=== PATIENT | male | born 1950 | race Caucasian/White ===

== ENCOUNTER 2019-07-12 13:12 | Inpatient (IN) | payer OTHER ==
[~2019-07-12] VITALS: Ht 185.4 cm; Wt 122.9 kg
[2019-07-12 13:24] VITALS: BP_SYST 170
[2019-07-12 14:11] LABS: BASOPHILS # (AUTO) 0.1 K/uL (0.0-0.2); BASOPHILS % (AUTO) 0.6 % (0.0-2.0); EOSINOPHILS # (AUTO) 0.7 K/uL (0.0-0.4); EOSINOPHILS % (AUTO) 5.8 % (0.0-4.0); HEMATOCRIT 23.5 % (36-54); HEMOGLOBIN 7.7 g/dL (14.0-18.0); LYMPHOCYTES # (AUTO) 1.9 K/uL (1.0-5.5); LYMPHOCYTES % (AUTO) 16.5 % (20.5-51.5); MEAN CORPUSCULAR HEMOGLOBIN 29 pg (27-31); MEAN CORPUSCULAR HGB CONC 33 % (32-36); MEAN CORPUSCULAR VOLUME 89 fL (79.0-98.0); MONOCYTES # (AUTO) 0.8 K/uL (0.0-1.0); MONOCYTES % (AUTO) 6.5 % (1.7-9.3); NEUTROPHILS # (AUTO) 8.2 K/uL (1.8-7.7); NEUTROPHILS % (AUTO) 70.6 % (40.0-70.0); PLATELET COUNT (AUTO) 208 K/uL (130-430); RED BLOOD CELL COUNT(AUTO) 2.63 MIL/uL (4.2-6.2); WHITE BLOOD COUNT (AUTO) 11.6 K/uL (4.8-10.8)
[2019-07-12 14:24] LABS: CALCIUM 9.5 mg/dL (8.4-11.0); CREATININE 1.7 mg/dL (0.55-1.30); POTASSIUM 4.9 mmol/L (3.5-5.1)
[2019-07-12 14:30] LABS: ALBUMIN 2.7 g/dL (3.4-4.8); TOTAL BILIRUBIN 0.2 mg/dL (0.0-1.0)
[2019-07-12] MEDS ORDERED: LIP40 PO (15:26)
[2019-07-12] MEDS ORDERED: SITA1TAB6 PO (15:26)
[2019-07-12] MEDS ORDERED: ZINC220T4 PO (15:26)
[2019-07-12] MEDS ORDERED: ENOX300V SQ (15:26)
[2019-07-12] MEDS ORDERED: MODA100T53 PO (15:26)
[2019-07-12] MEDS ORDERED: [UNRECOGNIZED DRUG - OTHER] GT (15:26)
[2019-07-12] MEDS ORDERED: DOCU-144 PO (15:26)
[2019-07-12] MEDS ORDERED: BISA-79 PO (15:26)
[2019-07-12] MEDS ORDERED: CLOP75TA32 PO (15:26)
[2019-07-12] MEDS ORDERED: TYLL650 PO (15:26)
[2019-07-12] MEDS ORDERED: TAMS0.4C96 PO (15:26)
[2019-07-12] MEDS ORDERED: ASPI-1153 PO (15:26)
[2019-07-12] MEDS ORDERED: LOSA50TA3 PO (15:26)
[2019-07-12] MEDS ORDERED: FLEETMO RC (15:26)
[2019-07-12] MEDS ORDERED: ASCO500W7 PO (15:26)
[2019-07-12] MEDS ORDERED: HYT1 GT (15:26)
[2019-07-12] MEDS ORDERED: MOM PO (15:26)
[2019-07-12] MEDS ORDERED: fentaNYL CITRATE/PF 100 MCG/2 ML AMP IVP ONE (17:15)
[2019-07-12 17:45] VITALS: BP_SYST 143
[2019-07-12 18:10] VITALS: BP_SYST 169
[2019-07-12] MEDS ORDERED: ACETAMINOPHEN 650 MG/20.3 ML UDC PO PRN (18:30)
[2019-07-12] MEDS ORDERED: metFORMIN HCL 500 MG TABLET GT ONE (18:45)
[2019-07-12] MEDS ORDERED: LevALBUTEROL HCL 1.25 MG/0.5 ML *CONC.* VIAL.NEB (XOPENEX CONC.) INH PRN (18:45)
[2019-07-12] MEDS ORDERED: DEXTROSE 50%-WATER 50 ML DISP.SYRIN IVP PRN (19:15)
[2019-07-12] MEDS ORDERED: D5W 1,000 ML IV PRN (19:15)
[2019-07-12] MEDS ORDERED: GLUCOSE 15 GM GEL (in 37.5 GM TUBE) PO PRN (19:15)
[2019-07-12 19:43] VITALS: BP_SYST 143
[2019-07-12] MEDS: LevALBUTEROL HCL 1.25 MG/0.5 ML *CONC.* VIAL.NEB (XOPENEX CONC.) INH SCH (19:51)
[2019-07-12 19:55] VITALS: BP_SYST 160
[2019-07-12] MEDS: DOCUSATE SODIUM 100 MG CAPSULE PO SCH (21:00)
[2019-07-12] MEDS ORDERED: KCL 20 mEq in D5/0.45NS 1000mL 1,000 ML IV ONE (21:40)
[2019-07-12] MEDS: TERAZOSIN HCL 5 MG CAPSULE (HYTRIN) GT SCH (22:01)
[2019-07-12] MEDS: LORazepam 2 MG/ML VIAL IVP PRN (22:59)
[2019-07-13] MEDS: LevALBUTEROL HCL 1.25 MG/0.5 ML *CONC.* VIAL.NEB (XOPENEX CONC.) INH SCH ×4 (01:11→19:48)
[2019-07-13 01:48] VITALS: BP_SYST 141
[2019-07-13] MEDS: KCL 20 mEq in D5/0.45NS 1000mL 1,000 ML IV SCH ×3 (06:12→20:15)
[2019-07-13 08:00] VITALS: BP_SYST 128
[2019-07-13] MEDS ORDERED: metFORMIN HCL 500 MG TABLET GT SCH (08:00)
[2019-07-13] MEDS ORDERED: BISACODYL 5 MG TABLET.DR (DULCOLAX) PO PRN (09:00)
[2019-07-13] MEDS ORDERED: MINERAL OIL 133 ML ENEMA RC PRN (09:00)
[2019-07-13] MEDS ORDERED: MILK OF MAGNESIA 30 ML UDC PO PRN (09:00)
[2019-07-13] MEDS: TAMSULOSIN HCL 0.4 MG CAP PO SCH (09:15)
[2019-07-13] MEDS: ATORVASTATIN 20 MG TABLET PO SCH (09:16)
[2019-07-13] MEDS: LOSARTAN POTASSIUM 50 MG TABLET (COZAAR) PO SCH (09:16)
[2019-07-13] MEDS: CLOPIDOGREL BISULFATE 75 MG TABLET PO SCH (09:16)
[2019-07-13] MEDS: DOCUSATE SODIUM 100 MG CAPSULE PO SCH ×2 (09:17→21:00)
[2019-07-13] MEDS: MODAFINIL 100 MG TABLET (PROVIGIL) PO SCH (09:17)
[2019-07-13] MEDS: ASPIRIN 81 MG TABLET(ECOTRIN) PO SCH (09:17)
[2019-07-13 09:21] LABS: BASOPHILS # (AUTO) 0.1 K/uL (0.0-0.2); BASOPHILS % (AUTO) 0.6 % (0.0-2.0); EOSINOPHILS # (AUTO) 0.6 K/uL (0.0-0.4); EOSINOPHILS % (AUTO) 6.3 % (0.0-4.0); HEMATOCRIT 26.9 % (36-54); LYMPHOCYTES # (AUTO) 1.8 K/uL (1.0-5.5); LYMPHOCYTES % (AUTO) 18.2 % (20.5-51.5); MEAN CORPUSCULAR HEMOGLOBIN 30 pg (27-31); MEAN CORPUSCULAR HGB CONC 34 % (32-36); MEAN CORPUSCULAR VOLUME 91 fL (79.0-98.0); MONOCYTES # (AUTO) 0.8 K/uL (0.0-1.0); MONOCYTES % (AUTO) 8.2 % (1.7-9.3); NEUTROPHILS # (AUTO) 6.7 K/uL (1.8-7.7); NEUTROPHILS % (AUTO) 66.7 % (40.0-70.0); PLATELET COUNT (AUTO) 190 K/uL (130-430); RED BLOOD CELL COUNT(AUTO) 2.96 MIL/uL (4.2-6.2); RED CELL DISTRIBUTION WIDTH 16.5 % (9.0-15.0)
[2019-07-13 09:35] LABS: CALCIUM 8.8 mg/dL (8.4-11.0); CREATININE 1.91 mg/dL (0.55-1.30); POTASSIUM 4.6 mmol/L (3.5-5.1)
[2019-07-13 09:56] LABS: TOTAL IRON BIND. CAPACITY 200 ug/dL (250-450)
[2019-07-13 11:15] VITALS: BP_SYST 157
[2019-07-13] MEDS: traMADol HCL HCL 50 MG TABLET (ULTRAM) GT PRN ×2 (12:22→18:47)
[2019-07-13 15:19] VITALS: BP_SYST 154
[2019-07-13] MEDS: LORazepam 2 MG/ML VIAL IVP PRN (15:31)
[2019-07-13 20:00] VITALS: BP_SYST 169
[2019-07-13] MEDS ORDERED: BISACODYL 5 MG TABLET.DR (DULCOLAX) GT PRN (20:15)
[2019-07-13] MEDS: TERAZOSIN HCL 5 MG CAPSULE (HYTRIN) GT SCH (20:16)
[2019-07-14] MEDS: LevALBUTEROL HCL 1.25 MG/0.5 ML *CONC.* VIAL.NEB (XOPENEX CONC.) INH SCH ×4 (01:23→19:57)
[2019-07-14 01:44] VITALS: BP_SYST 122
[2019-07-14 06:45] LABS: BASOPHILS # (AUTO) 0.1 K/uL (0.0-0.2); BASOPHILS % (AUTO) 0.7 % (0.0-2.0); EOSINOPHILS # (AUTO) 0.6 K/uL (0.0-0.4); EOSINOPHILS % (AUTO) 6.3 % (0.0-4.0); HEMOGLOBIN 8.1 g/dL (14.0-18.0); LYMPHOCYTES # (AUTO) 1.8 K/uL (1.0-5.5); LYMPHOCYTES % (AUTO) 18.5 % (20.5-51.5); MEAN CORPUSCULAR HEMOGLOBIN 31 pg (27-31); MEAN CORPUSCULAR HGB CONC 34 % (32-36); MEAN CORPUSCULAR VOLUME 91 fL (79.0-98.0); MONOCYTES # (AUTO) 0.8 K/uL (0.0-1.0); MONOCYTES % (AUTO) 8.6 % (1.7-9.3); NEUTROPHILS # (AUTO) 6.4 K/uL (1.8-7.7); NEUTROPHILS % (AUTO) 65.9 % (40.0-70.0); PLATELET COUNT (AUTO) 165 K/uL (130-430); RED BLOOD CELL COUNT(AUTO) 2.64 MIL/uL (4.2-6.2); RED CELL DISTRIBUTION WIDTH 16.8 % (9.0-15.0); WHITE BLOOD COUNT (AUTO) 9.7 K/uL (4.8-10.8)
[2019-07-14 07:06] LABS: ALBUMIN 2.2 g/dL (3.4-4.8); CALCIUM 8.2 mg/dL (8.4-11.0); CREATININE 1.89 mg/dL (0.55-1.30); POTASSIUM 4.9 mmol/L (3.5-5.1); TOTAL BILIRUBIN 0.3 mg/dL (0.0-1.0)
[2019-07-14 08:00] VITALS: BP_SYST 139
[2019-07-14 08:08] LABS: FOLATE (FOLIC ACID) 8.8 ng/mL (>3.0)
[2019-07-14] MEDS: MODAFINIL 100 MG TABLET (PROVIGIL) PO SCH (08:10)
[2019-07-14] MEDS: DOCUSATE SODIUM 100 MG CAPSULE PO SCH ×2 (08:10→20:45)
[2019-07-14] MEDS: ASPIRIN 81 MG TABLET(ECOTRIN) PO SCH (08:11)
[2019-07-14] MEDS: LOSARTAN POTASSIUM 50 MG TABLET (COZAAR) PO SCH (08:11)
[2019-07-14] MEDS: TAMSULOSIN HCL 0.4 MG CAP PO SCH (08:12)
[2019-07-14] MEDS: CLOPIDOGREL BISULFATE 75 MG TABLET PO SCH (08:12)
[2019-07-14] MEDS: ATORVASTATIN 20 MG TABLET PO SCH (08:12)
[2019-07-14] MEDS: KCL 20 mEq in D5/0.45NS 1000mL 1,000 ML IV SCH (08:14)
[2019-07-14] MEDS: LORazepam 2 MG/ML VIAL IVP PRN (08:22)
[2019-07-14 11:22] VITALS: BP_SYST 164
[2019-07-14] MEDS ORDERED: FLU VACC TS2019(65UP)/MF59C/PF 45 MCG/0.5 ML SYRINGE I.M. PRN (13:00)
[2019-07-14 15:46] VITALS: BP_SYST 132
[2019-07-14] MEDS ORDERED: 0.45% NACL 1,000 ML IV SCH (17:00)
[2019-07-14 19:55] VITALS: BP_SYST 133
[2019-07-14] MEDS ORDERED: D5/0.45 NS 1,000 ML IV SCH (20:15)
[2019-07-14] MEDS: TERAZOSIN HCL 5 MG CAPSULE (HYTRIN) GT SCH (20:46)
[2019-07-14] MEDS: 0.45% NACL 1,000 ML IV SCH (21:00)
[2019-07-14] MEDS: INSULIN REGULAR, HUMAN 100 UNITS/ML, 10 ML VIAL (humuLIN R) SUBCUT PRN (23:50)
[2019-07-15 00:28] VITALS: BP_SYST 142
[2019-07-15] MEDS: LevALBUTEROL HCL 1.25 MG/0.5 ML *CONC.* VIAL.NEB (XOPENEX CONC.) INH SCH ×4 (01:52→19:46)
[2019-07-15] MEDS: 0.45% NACL 1,000 ML IV SCH ×2 (05:24→15:45)
[2019-07-15 07:14] LABS: BASOPHILS # (AUTO) 0.1 K/uL (0.0-0.2); BASOPHILS % (AUTO) 0.6 % (0.0-2.0); EOSINOPHILS # (AUTO) 0.6 K/uL (0.0-0.4); EOSINOPHILS % (AUTO) 6.2 % (0.0-4.0); HEMATOCRIT 24.6 % (36-54); HEMOGLOBIN 8.2 g/dL (14.0-18.0); LYMPHOCYTES # (AUTO) 1.7 K/uL (1.0-5.5); LYMPHOCYTES % (AUTO) 16.4 % (20.5-51.5); MEAN CORPUSCULAR HEMOGLOBIN 31 pg (27-31); MEAN CORPUSCULAR HGB CONC 33 % (32-36); MEAN CORPUSCULAR VOLUME 92 fL (79.0-98.0); MONOCYTES # (AUTO) 0.7 K/uL (0.0-1.0); MONOCYTES % (AUTO) 6.5 % (1.7-9.3); NEUTROPHILS # (AUTO) 7.2 K/uL (1.8-7.7); NEUTROPHILS % (AUTO) 70.3 % (40.0-70.0); PLATELET COUNT (AUTO) 165 K/uL (130-430); RED BLOOD CELL COUNT(AUTO) 2.68 MIL/uL (4.2-6.2); RED CELL DISTRIBUTION WIDTH 17.3 % (9.0-15.0); WHITE BLOOD COUNT (AUTO) 10.3 K/uL (4.8-10.8)
[2019-07-15 07:54] LABS: ALBUMIN 2.3 g/dL (3.4-4.8); CALCIUM 8.4 mg/dL (8.4-11.0); CREATININE 1.81 mg/dL (0.55-1.30); POTASSIUM 4.6 mmol/L (3.5-5.1); TOTAL BILIRUBIN 0.3 mg/dL (0.0-1.0)
[2019-07-15 08:00] VITALS: BP_SYST 130
[2019-07-15 08:15] VITALS: BP_SYST 142
[2019-07-15 08:16] LABS: TOTAL IRON BIND. CAPACITY 169 ug/dL (250-450)
[2019-07-15] MEDS: LORazepam 2 MG/ML VIAL IVP PRN ×3 (08:45→23:54)
[2019-07-15] MEDS: MODAFINIL 100 MG TABLET (PROVIGIL) PO SCH (08:48)
[2019-07-15] MEDS: ATORVASTATIN 20 MG TABLET PO SCH (08:48)
[2019-07-15] MEDS: CLOPIDOGREL BISULFATE 75 MG TABLET PO SCH (08:48)
[2019-07-15] MEDS: TAMSULOSIN HCL 0.4 MG CAP PO SCH (08:49)
[2019-07-15] MEDS: ASPIRIN 81 MG TABLET(ECOTRIN) PO SCH (08:49)
[2019-07-15] MEDS: DOCUSATE SODIUM 100 MG CAPSULE PO SCH ×2 (08:49→20:14)
[2019-07-15] MEDS: LOSARTAN POTASSIUM 50 MG TABLET (COZAAR) PO SCH (08:49)
[2019-07-15 11:20] VITALS: BP_SYST 135
[2019-07-15 14:44] LABS: BILIRUBIN,URINE NEGATIVE (NEGATIVE); BLOOD, URINE 3+ (NEGATIVE); CLARITY/URINE CLOUDY (CLEAR); COLOR,URINE ORANGE (YELLOW); GLUCOSE,URINE NEGATIVE (NEGATIVE); KETONES,URINE NEGATIVE (NEGATIVE); LEUKOCYTE ESTERASE ,URINE 2+ (NEGATIVE); NITRITE, URINE POSITIVE (NEGATIVE); PH,URINE 5.5 (5.0-8.0); PROTEIN URINE 3+ (NEGATIVE); UROBILINOGEN,URINE 0.2 (0.2-1.0)
[2019-07-15 15:00] VITALS: BP_SYST 151
[2019-07-15 15:09] LABS: BACTERIA,URINE MODERATE /HPF (None Seen); MUCUS,URINE 1+ /LPF (None Seen); RBC,URINE >100 /HPF (0-3); WBC,URINE >100 /HPF (0-3)
[2019-07-15 20:00] VITALS: BP_SYST 150
[2019-07-15] MEDS: TERAZOSIN HCL 5 MG CAPSULE (HYTRIN) GT SCH (20:15)
[2019-07-15] MEDS ORDERED: CEFEPIME 1 GM/VIAL (MAXIPIME) ONE (21:58)
[2019-07-15] MEDS: CEFEPIME 1 GM in D5W 50 ML IV SCH (22:19)
[2019-07-16] MEDS: LevALBUTEROL HCL 1.25 MG/0.5 ML *CONC.* VIAL.NEB (XOPENEX CONC.) INH SCH ×4 (00:40→20:05)
[2019-07-16 01:00] VITALS: BP_SYST 148
[2019-07-16] MEDS: 0.45% NACL 1,000 ML IV SCH ×3 (02:45→23:27)
[2019-07-16 06:31] LABS: BASOPHILS # (AUTO) 0.1 K/uL (0.0-0.2); BASOPHILS % (AUTO) 0.7 % (0.0-2.0); EOSINOPHILS # (AUTO) 0.5 K/uL (0.0-0.4); EOSINOPHILS % (AUTO) 4.6 % (0.0-4.0); HEMATOCRIT 24.7 % (36-54); HEMOGLOBIN 8.1 g/dL (14.0-18.0); LYMPHOCYTES # (AUTO) 1.2 K/uL (1.0-5.5); LYMPHOCYTES % (AUTO) 11.1 % (20.5-51.5); MEAN CORPUSCULAR HEMOGLOBIN 30 pg (27-31); MEAN CORPUSCULAR HGB CONC 33 % (32-36); MEAN CORPUSCULAR VOLUME 91 fL (79.0-98.0); MONOCYTES # (AUTO) 0.9 K/uL (0.0-1.0); NEUTROPHILS # (AUTO) 8.4 K/uL (1.8-7.7); NEUTROPHILS % (AUTO) 75.6 % (40.0-70.0); PLATELET COUNT (AUTO) 174 K/uL (130-430); RED BLOOD CELL COUNT(AUTO) 2.71 MIL/uL (4.2-6.2); RED CELL DISTRIBUTION WIDTH 17.3 % (9.0-15.0); WHITE BLOOD COUNT (AUTO) 11.1 K/uL (4.8-10.8)
[2019-07-16 06:43] LABS: ALBUMIN 2.3 g/dL (3.4-4.8); CALCIUM 8.3 mg/dL (8.4-11.0); CREATININE 1.88 mg/dL (0.55-1.30); POTASSIUM 4.7 mmol/L (3.5-5.1); TOTAL BILIRUBIN 0.4 mg/dL (0.0-1.0)
[2019-07-16 08:00] VITALS: BP_SYST 137
[2019-07-16 08:06] LABS: FOLATE (FOLIC ACID) 10.7 ng/mL (>3.0)
[2019-07-16] MEDS: TAMSULOSIN HCL 0.4 MG CAP PO SCH (09:46)
[2019-07-16] MEDS: ATORVASTATIN 20 MG TABLET PO SCH (09:46)
[2019-07-16] MEDS: CEFEPIME 1 GM in D5W 50 ML IV SCH ×2 (09:46→21:06)
[2019-07-16] MEDS: ASPIRIN 81 MG TABLET(ECOTRIN) PO SCH (09:46)
[2019-07-16] MEDS: MODAFINIL 100 MG TABLET (PROVIGIL) PO SCH (09:46)
[2019-07-16] MEDS: CLOPIDOGREL BISULFATE 75 MG TABLET PO SCH (09:46)
[2019-07-16] MEDS: DOCUSATE SODIUM 100 MG CAPSULE PO SCH ×2 (09:47→21:06)
[2019-07-16] MEDS: LOSARTAN POTASSIUM 50 MG TABLET (COZAAR) PO SCH (09:47)
[2019-07-16] MEDS: SOD FERRIC GLUC COMPLEX/SUC 125 MG in NS 100 ML IV SCH (09:48)
[2019-07-16 12:15] VITALS: BP_SYST 158
[2019-07-16] MEDS: traMADol HCL HCL 50 MG TABLET (ULTRAM) GT PRN (14:43)
[2019-07-16 16:46] VITALS: BP_SYST 158
[2019-07-16 20:00] VITALS: BP_SYST 156
[2019-07-16] MEDS: TERAZOSIN HCL 5 MG CAPSULE (HYTRIN) GT SCH (21:06)
[2019-07-17] MEDS: LevALBUTEROL HCL 1.25 MG/0.5 ML *CONC.* VIAL.NEB (XOPENEX CONC.) INH SCH ×4 (01:01→19:35)
[2019-07-17] MEDS: traMADol HCL HCL 50 MG TABLET (ULTRAM) GT PRN ×2 (01:08→09:54)
[2019-07-17] MEDS: LORazepam 2 MG/ML VIAL IVP PRN (03:43)
[2019-07-17 07:30] VITALS: BP_SYST 132
[2019-07-17 07:34] VITALS: BP_SYST 132
[2019-07-17 07:34] LABS: BASOPHILS # (AUTO) 0.1 K/uL (0.0-0.2); BASOPHILS % (AUTO) 0.6 % (0.0-2.0); EOSINOPHILS # (AUTO) 0.6 K/uL (0.0-0.4); EOSINOPHILS % (AUTO) 7.2 % (0.0-4.0); HEMATOCRIT 22.6 % (36-54); HEMOGLOBIN 7.6 g/dL (14.0-18.0); LYMPHOCYTES # (AUTO) 1.5 K/uL (1.0-5.5); LYMPHOCYTES % (AUTO) 16.9 % (20.5-51.5); MEAN CORPUSCULAR HEMOGLOBIN 31 pg (27-31); MEAN CORPUSCULAR HGB CONC 34 % (32-36); MEAN CORPUSCULAR VOLUME 92 fL (79.0-98.0); MONOCYTES # (AUTO) 0.8 K/uL (0.0-1.0); MONOCYTES % (AUTO) 9.5 % (1.7-9.3); NEUTROPHILS # (AUTO) 5.8 K/uL (1.8-7.7); NEUTROPHILS % (AUTO) 65.8 % (40.0-70.0); PLATELET COUNT (AUTO) 149 K/uL (130-430); RED BLOOD CELL COUNT(AUTO) 2.47 MIL/uL (4.2-6.2); RED CELL DISTRIBUTION WIDTH 17.2 % (9.0-15.0); WHITE BLOOD COUNT (AUTO) 8.9 K/uL (4.8-10.8)
[2019-07-17 08:03] LABS: ALBUMIN 2.2 g/dL (3.4-4.8); CALCIUM 7.3 mg/dL (8.4-11.0); CREATININE 2.03 mg/dL (0.55-1.30); POTASSIUM 4.3 mmol/L (3.5-5.1); TOTAL BILIRUBIN 0.3 mg/dL (0.0-1.0)
[2019-07-17] MEDS: CLOPIDOGREL BISULFATE 75 MG TABLET PO SCH (09:53)
[2019-07-17] MEDS: ATORVASTATIN 20 MG TABLET PO SCH (09:53)
[2019-07-17] MEDS: ASPIRIN 81 MG TABLET(ECOTRIN) PO SCH (09:53)
[2019-07-17] MEDS: MODAFINIL 100 MG TABLET (PROVIGIL) PO SCH (09:54)
[2019-07-17] MEDS: DOCUSATE SODIUM 100 MG CAPSULE PO SCH ×2 (09:54→21:56)
[2019-07-17] MEDS: TAMSULOSIN HCL 0.4 MG CAP PO SCH (09:54)
[2019-07-17] MEDS: LOSARTAN POTASSIUM 50 MG TABLET (COZAAR) PO SCH (09:55)
[2019-07-17] MEDS: CEFEPIME 1 GM in D5W 50 ML IV SCH ×2 (10:29→21:57)
[2019-07-17] MEDS: 0.45% NACL 1,000 ML IV SCH ×2 (10:30→21:57)
[2019-07-17] MEDS: SOD FERRIC GLUC COMPLEX/SUC 125 MG in NS 100 ML IV SCH (11:06)
[2019-07-17 12:20] VITALS: BP_SYST 145
[2019-07-17 16:20] VITALS: BP_SYST 122
[2019-07-17 20:00] VITALS: BP_SYST 115
[2019-07-17] MEDS: TERAZOSIN HCL 5 MG CAPSULE (HYTRIN) GT SCH (21:56)
[2019-07-18 00:14] VITALS: BP_SYST 134
[2019-07-18] MEDS: LevALBUTEROL HCL 1.25 MG/0.5 ML *CONC.* VIAL.NEB (XOPENEX CONC.) INH SCH ×4 (01:54→19:38)
[2019-07-18] MEDS: traMADol HCL HCL 50 MG TABLET (ULTRAM) GT PRN ×2 (02:44→08:45)
[2019-07-18] MEDS: 0.45% NACL 1,000 ML IV SCH ×3 (05:12→23:11)
[2019-07-18 07:40] LABS: CREATININE 2.24 mg/dL (0.55-1.30); POTASSIUM 4.3 mmol/L (3.5-5.1)
[2019-07-18 07:44] LABS: BASOPHILS # (AUTO) 0.1 K/uL (0.0-0.2); BASOPHILS % (AUTO) 0.6 % (0.0-2.0); EOSINOPHILS # (AUTO) 0.6 K/uL (0.0-0.4); EOSINOPHILS % (AUTO) 6.7 % (0.0-4.0); HEMATOCRIT 23.9 % (36-54); LYMPHOCYTES # (AUTO) 1.4 K/uL (1.0-5.5); LYMPHOCYTES % (AUTO) 15.3 % (20.5-51.5); MEAN CORPUSCULAR HEMOGLOBIN 31 pg (27-31); MEAN CORPUSCULAR HGB CONC 33 % (32-36); MEAN CORPUSCULAR VOLUME 92 fL (79.0-98.0); MONOCYTES # (AUTO) 0.8 K/uL (0.0-1.0); MONOCYTES % (AUTO) 8.3 % (1.7-9.3); NEUTROPHILS # (AUTO) 6.5 K/uL (1.8-7.7); NEUTROPHILS % (AUTO) 69.1 % (40.0-70.0); PLATELET COUNT (AUTO) 159 K/uL (130-430); RED BLOOD CELL COUNT(AUTO) 2.61 MIL/uL (4.2-6.2); RED CELL DISTRIBUTION WIDTH 16.9 % (9.0-15.0); WHITE BLOOD COUNT (AUTO) 9.4 K/uL (4.8-10.8)
[2019-07-18 08:00] VITALS: BP_SYST 153
[2019-07-18] MEDS: CEFEPIME 1 GM in D5W 50 ML IV SCH ×2 (08:41→20:39)
[2019-07-18] MEDS: DOCUSATE SODIUM 100 MG CAPSULE PO SCH ×2 (08:44→20:39)
[2019-07-18] MEDS: LOSARTAN POTASSIUM 50 MG TABLET (COZAAR) PO SCH (08:44)
[2019-07-18] MEDS: ASPIRIN 81 MG TABLET(ECOTRIN) PO SCH (08:44)
[2019-07-18] MEDS: TAMSULOSIN HCL 0.4 MG CAP PO SCH (08:45)
[2019-07-18] MEDS: ATORVASTATIN 20 MG TABLET PO SCH (08:45)
[2019-07-18] MEDS: CLOPIDOGREL BISULFATE 75 MG TABLET PO SCH (08:45)
[2019-07-18] MEDS: MODAFINIL 100 MG TABLET (PROVIGIL) PO SCH (08:46)
[2019-07-18] MEDS: SOD FERRIC GLUC COMPLEX/SUC 125 MG in NS 100 ML IV SCH (09:42)
[2019-07-18 11:20] VITALS: BP_SYST 149
[2019-07-18 15:17] VITALS: BP_SYST 151
[2019-07-18] MEDS ORDERED: SOD FERRIC GLUC COMPLEX/SUC 125 MG in NS 100 ML IV SCH (17:15)
[2019-07-18 20:00] VITALS: BP_SYST 156
[2019-07-18] MEDS: TERAZOSIN HCL 5 MG CAPSULE (HYTRIN) GT SCH (20:42)
[2019-07-18] MEDS: INSULIN REGULAR, HUMAN 100 UNITS/ML, 10 ML VIAL (humuLIN R) SUBCUT PRN (23:10)
[2019-07-19] VITALS: BP_SYST 116
[2019-07-19] MEDS: LevALBUTEROL HCL 1.25 MG/0.5 ML *CONC.* VIAL.NEB (XOPENEX CONC.) INH SCH ×4 (00:54→21:36)
[2019-07-19] MEDS: LORazepam 2 MG/ML VIAL IVP PRN ×3 (00:55→21:32)
[2019-07-19 07:39] LABS: EOSINOPHILS # (AUTO) 0.1 K/uL (0.0-0.4); LYMPHOCYTES # (AUTO) 0.9 K/uL (1.0-5.5); MEAN CORPUSCULAR HEMOGLOBIN 30 pg (27-31); MEAN CORPUSCULAR HGB CONC 33 % (32-36); MEAN CORPUSCULAR VOLUME 92 fL (79.0-98.0); MONOCYTES # (AUTO) 1.1 K/uL (0.0-1.0); NEUTROPHILS % (AUTO) 84.9 % (40.0-70.0); RED BLOOD CELL COUNT(AUTO) 2.47 MIL/uL (4.2-6.2)
[2019-07-19 07:59] LABS: ALBUMIN 1.8 g/dL (3.4-4.8); CALCIUM 7.2 mg/dL (8.4-11.0); CREATININE 2.31 mg/dL (0.55-1.30); POTASSIUM 3.9 mmol/L (3.5-5.1); TOTAL BILIRUBIN 0.3 mg/dL (0.0-1.0)
[2019-07-19 08:02] VITALS: BP_SYST 152
[2019-07-19 08:23] LABS: BASOPHILS % (AUTO) 0.2 % (0.0-2.0); EOSINOPHILS % (AUTO) 0.5 % (0.0-4.0); HEMATOCRIT 22.7 % (36-54); HEMOGLOBIN 7.5 g/dL (14.0-18.0); LYMPHOCYTES % (AUTO) 6.5 % (20.5-51.5); MONOCYTES % (AUTO) 7.9 % (1.7-9.3); NEUTROPHILS # (AUTO) 11.9 K/uL (1.8-7.7); PLATELET COUNT (AUTO) 150 K/uL (130-430)
[2019-07-19] MEDS: CEFEPIME 1 GM in D5W 50 ML IV SCH (09:35)
[2019-07-19] MEDS: SOD FERRIC GLUC COMPLEX/SUC 125 MG in NS 100 ML IV SCH (09:35)
[2019-07-19] MEDS: MODAFINIL 100 MG TABLET (PROVIGIL) PO SCH (09:36)
[2019-07-19] MEDS: LOSARTAN POTASSIUM 50 MG TABLET (COZAAR) PO SCH (09:36)
[2019-07-19] MEDS: CLOPIDOGREL BISULFATE 75 MG TABLET PO SCH (09:36)
[2019-07-19] MEDS: DOCUSATE SODIUM 100 MG CAPSULE PO SCH ×2 (09:37→21:21)
[2019-07-19] MEDS: ASPIRIN 81 MG TABLET(ECOTRIN) PO SCH (09:37)
[2019-07-19] MEDS: TAMSULOSIN HCL 0.4 MG CAP PO SCH (09:37)
[2019-07-19] MEDS: ATORVASTATIN 20 MG TABLET PO SCH (10:07)
[2019-07-19 11:18] VITALS: BP_SYST 155
[2019-07-19] MEDS ORDERED: FUROSEMIDE 40 MG/4 ML VIAL IVP ONE (11:45)
[2019-07-19 14:59] VITALS: BP_SYST 142
[2019-07-19] MEDS: 0.45% NACL 1,000 ML IV SCH ×2 (17:32→21:27)
[2019-07-19] MEDS ORDERED: ONDANSETRON HCL 4 MG/2 ML VIAL ONE (18:26)
[2019-07-19 20:00] VITALS: BP_SYST 158
[2019-07-19] MEDS ORDERED: ONDANSETRON HCL 4 MG/2 ML VIAL IVP PRN (21:00)
[2019-07-19] MEDS: CIPROFLOXACIN HCL 500 MG TABLET GT SCH (21:22)
[2019-07-19] MEDS: CARVEDILOL 6.25 MG TABLET (COREG) PO SCH (21:46)
[2019-07-19] MEDS: TERAZOSIN HCL 5 MG CAPSULE (HYTRIN) GT SCH (21:47)
[2019-07-20] MEDS ORDERED: hydrALAZINE HCL 20 MG/ML VIAL IVP PRN (01:00)
[2019-07-20 01:34] VITALS: BP_SYST 179
[2019-07-20] MEDS: LevALBUTEROL HCL 1.25 MG/0.5 ML *CONC.* VIAL.NEB (XOPENEX CONC.) INH SCH ×4 (01:50→20:20)
[2019-07-20] MEDS: 0.45% NACL 1,000 ML IV SCH ×2 (06:58→18:10)
[2019-07-20 08:00] VITALS: BP_SYST 162
[2019-07-20 08:17] LABS: CALCIUM 8.2 mg/dL (8.4-11.0); CREATININE 3.17 mg/dL (0.55-1.30); POTASSIUM 4.2 mmol/L (3.5-5.1); TOTAL BILIRUBIN 0.3 mg/dL (0.0-1.0)
[2019-07-20 08:26] LABS: BASOPHILS # (AUTO) 0.1 K/uL (0.0-0.2); BASOPHILS % (AUTO) 0.4 % (0.0-2.0); EOSINOPHILS # (AUTO) 0.2 K/uL (0.0-0.4); EOSINOPHILS % (AUTO) 1.3 % (0.0-4.0); HEMATOCRIT 24.4 % (36-54); HEMOGLOBIN 7.9 g/dL (14.0-18.0); LYMPHOCYTES # (AUTO) 1.1 K/uL (1.0-5.5); LYMPHOCYTES % (AUTO) 7.5 % (20.5-51.5); MEAN CORPUSCULAR HEMOGLOBIN 30 pg (27-31); MEAN CORPUSCULAR HGB CONC 32 % (32-36); MEAN CORPUSCULAR VOLUME 93 fL (79.0-98.0); MONOCYTES # (AUTO) 1.4 K/uL (0.0-1.0); MONOCYTES % (AUTO) 9.9 % (1.7-9.3); NEUTROPHILS # (AUTO) 11.4 K/uL (1.8-7.7); NEUTROPHILS % (AUTO) 80.9 % (40.0-70.0); PLATELET COUNT (AUTO) 169 K/uL (130-430); RED BLOOD CELL COUNT(AUTO) 2.63 MIL/uL (4.2-6.2); RED CELL DISTRIBUTION WIDTH 17.1 % (9.0-15.0)
[2019-07-20] MEDS: ASPIRIN 81 MG TABLET(ECOTRIN) PO SCH (09:42)
[2019-07-20] MEDS: SOD FERRIC GLUC COMPLEX/SUC 125 MG in NS 100 ML IV SCH (09:42)
[2019-07-20] MEDS: DOCUSATE SODIUM 100 MG CAPSULE PO SCH ×2 (09:42→21:25)
[2019-07-20] MEDS: ATORVASTATIN 20 MG TABLET PO SCH (09:42)
[2019-07-20] MEDS: CLOPIDOGREL BISULFATE 75 MG TABLET PO SCH (09:42)
[2019-07-20] MEDS: CIPROFLOXACIN HCL 500 MG TABLET GT SCH ×2 (09:42→21:25)
[2019-07-20] MEDS: TAMSULOSIN HCL 0.4 MG CAP PO SCH (09:42)
[2019-07-20] MEDS: MODAFINIL 100 MG TABLET (PROVIGIL) PO SCH (09:43)
[2019-07-20] MEDS: CARVEDILOL 6.25 MG TABLET (COREG) PO SCH ×2 (09:43→21:30)
[2019-07-20 11:11] VITALS: BP_SYST 152
[2019-07-20] MEDS ORDERED: [UNRECOGNIZED DRUG - REMARK] XX SCH (14:15)
[2019-07-20 14:53] LABS: BILIRUBIN,URINE 1+ (NEGATIVE); BLOOD, URINE 3+ (NEGATIVE); CLARITY/URINE CLOUDY (CLEAR); GLUCOSE,URINE NEGATIVE (NEGATIVE); KETONES,URINE NEGATIVE (NEGATIVE); LEUKOCYTE ESTERASE ,URINE TRACE (NEGATIVE); NITRITE, URINE NEGATIVE (NEGATIVE); PROTEIN URINE 3+ (NEGATIVE); UROBILINOGEN,URINE 0.2 (0.2-1.0)
[2019-07-20 14:56] LABS: COLOR,URINE RED (YELLOW)
[2019-07-20 14:58] LABS: BACTERIA,URINE MODERATE /HPF (None Seen); RBC,URINE >100 /HPF (0-3)
[2019-07-20 14:59] LABS: MUCUS,URINE 1+ /LPF (None Seen)
[2019-07-20 15:21] VITALS: BP_SYST 140
[2019-07-20 20:00] VITALS: BP_SYST 140
[2019-07-20] MEDS: TERAZOSIN HCL 5 MG CAPSULE (HYTRIN) GT SCH (21:31)
[2019-07-21] VITALS: BP_SYST 125
[2019-07-21] MEDS: LevALBUTEROL HCL 1.25 MG/0.5 ML *CONC.* VIAL.NEB (XOPENEX CONC.) INH SCH ×4 (01:04→19:41)
[2019-07-21] MEDS: 0.45% NACL 1,000 ML IV SCH ×3 (04:00→23:38)
[2019-07-21] MEDS: LORazepam 2 MG/ML VIAL IVP PRN ×2 (04:14→18:03)
[2019-07-21] MEDS ORDERED: METOCLOPRAMIDE HCL 10 MG/2 ML VIAL IVP SCH (06:00)
[2019-07-21 07:43] LABS: BASOPHILS # (AUTO) 0.1 K/uL (0.0-0.2); BASOPHILS % (AUTO) 0.5 % (0.0-2.0); EOSINOPHILS # (AUTO) 0.7 K/uL (0.0-0.4); EOSINOPHILS % (AUTO) 5.2 % (0.0-4.0); HEMOGLOBIN 8.5 g/dL (14.0-18.0); LYMPHOCYTES # (AUTO) 1.3 K/uL (1.0-5.5); MEAN CORPUSCULAR HEMOGLOBIN 30 pg (27-31); MEAN CORPUSCULAR HGB CONC 33 % (32-36); MEAN CORPUSCULAR VOLUME 93 fL (79.0-98.0); MONOCYTES % (AUTO) 7.9 % (1.7-9.3); NEUTROPHILS # (AUTO) 9.9 K/uL (1.8-7.7); NEUTROPHILS % (AUTO) 76.4 % (40.0-70.0); PLATELET COUNT (AUTO) 198 K/uL (130-430); RED BLOOD CELL COUNT(AUTO) 2.81 MIL/uL (4.2-6.2)
[2019-07-21 08:21] LABS: ALBUMIN 2.2 g/dL (3.4-4.8); CREATININE 3.65 mg/dL (0.55-1.30); POTASSIUM 4.1 mmol/L (3.5-5.1); TOTAL BILIRUBIN 0.3 mg/dL (0.0-1.0)
[2019-07-21] MEDS: ATORVASTATIN 20 MG TABLET PO SCH (09:31)
[2019-07-21] MEDS: SOD FERRIC GLUC COMPLEX/SUC 125 MG in NS 100 ML IV SCH (09:31)
[2019-07-21] MEDS: TAMSULOSIN HCL 0.4 MG CAP PO SCH (09:32)
[2019-07-21] MEDS: ASPIRIN 81 MG TABLET(ECOTRIN) PO SCH (09:32)
[2019-07-21] MEDS: DOCUSATE SODIUM 100 MG CAPSULE PO SCH ×2 (09:32→21:00)
[2019-07-21] MEDS: CLOPIDOGREL BISULFATE 75 MG TABLET PO SCH (09:32)
[2019-07-21] MEDS: MODAFINIL 100 MG TABLET (PROVIGIL) PO SCH (09:32)
[2019-07-21] MEDS: CARVEDILOL 6.25 MG TABLET (COREG) PO SCH ×2 (09:33→21:19)
[2019-07-21] MEDS: CIPROFLOXACIN HCL 500 MG TABLET GT SCH ×2 (09:36→21:19)
[2019-07-21] MEDS ORDERED: cefTRIAXone 1 GM in D5W 50 ML IV SCH (12:00)
[2019-07-21 12:17] VITALS: BP_SYST 150
[2019-07-21] MEDS: VANCOMYCIN HCL ORAL SOLUTION 250 MG/5 ML, 80 ML GT SCH ×3 (13:55→21:00)
[2019-07-21] MEDS ORDERED: METOCLOPRAMIDE HCL 10 MG/2 ML VIAL IVP PRN (14:00)
[2019-07-21 16:40] VITALS: BP_SYST 138
[2019-07-21] MEDS: TERAZOSIN HCL 5 MG CAPSULE (HYTRIN) GT SCH (21:19)
[2019-07-22] MEDS: LevALBUTEROL HCL 1.25 MG/0.5 ML *CONC.* VIAL.NEB (XOPENEX CONC.) INH SCH ×4 (00:46→19:34)
[2019-07-22 00:51] VITALS: BP_SYST 122
[2019-07-22 07:57] VITALS: BP_SYST 148
[2019-07-22] MEDS: DOCUSATE SODIUM 100 MG CAPSULE PO SCH ×2 (09:00→22:36)
[2019-07-22] MEDS: 0.45% NACL 1,000 ML IV SCH ×2 (09:00→13:40)
[2019-07-22] MEDS: MODAFINIL 100 MG TABLET (PROVIGIL) PO SCH (09:32)
[2019-07-22] MEDS: VANCOMYCIN HCL ORAL SOLUTION 250 MG/5 ML, 80 ML GT SCH ×4 (09:32→22:35)
[2019-07-22] MEDS: CARVEDILOL 6.25 MG TABLET (COREG) PO SCH ×2 (09:32→21:00)
[2019-07-22] MEDS: ATORVASTATIN 20 MG TABLET PO SCH (09:32)
[2019-07-22] MEDS: TAMSULOSIN HCL 0.4 MG CAP PO SCH (09:32)
[2019-07-22] MEDS: ASPIRIN 81 MG TABLET(ECOTRIN) PO SCH (09:33)
[2019-07-22] MEDS: SOD FERRIC GLUC COMPLEX/SUC 125 MG in NS 100 ML IV SCH (09:33)
[2019-07-22] MEDS: CLOPIDOGREL BISULFATE 75 MG TABLET PO SCH (09:35)
[2019-07-22 10:31] LABS: BASOPHILS # (AUTO) 0.1 K/uL (0.0-0.2); BASOPHILS % (AUTO) 0.6 % (0.0-2.0); EOSINOPHILS # (AUTO) 0.7 K/uL (0.0-0.4); EOSINOPHILS % (AUTO) 5.9 % (0.0-4.0); HEMOGLOBIN 7.2 g/dL (14.0-18.0); LYMPHOCYTES # (AUTO) 1.4 K/uL (1.0-5.5); LYMPHOCYTES % (AUTO) 12.3 % (20.5-51.5); MEAN CORPUSCULAR HEMOGLOBIN 31 pg (27-31); MEAN CORPUSCULAR HGB CONC 33 % (32-36); MEAN CORPUSCULAR VOLUME 92 fL (79.0-98.0); MONOCYTES # (AUTO) 1.1 K/uL (0.0-1.0); MONOCYTES % (AUTO) 9.9 % (1.7-9.3); NEUTROPHILS % (AUTO) 71.3 % (40.0-70.0); PLATELET COUNT (AUTO) 184 K/uL (130-430); RED BLOOD CELL COUNT(AUTO) 2.34 MIL/uL (4.2-6.2); RED CELL DISTRIBUTION WIDTH 16.8 % (9.0-15.0); WHITE BLOOD COUNT (AUTO) 11.2 K/uL (4.8-10.8)
[2019-07-22 10:33] LABS: HEMATOCRIT 21.5 % (36-54)
[2019-07-22 10:48] LABS: CALCIUM 7.9 mg/dL (8.4-11.0); CREATININE 4.18 mg/dL (0.55-1.30); POTASSIUM 4.3 mmol/L (3.5-5.1)
[2019-07-22 10:55] LABS: TOTAL BILIRUBIN 0.3 mg/dL (0.0-1.0)
[2019-07-22 11:37] VITALS: BP_SYST 146
[2019-07-22] MEDS ORDERED: LIDOCAINE 1% 10 MG/ML, 20 ML MDV INJ ONE (13:30)
[2019-07-22] MEDS: PIPERACILLIN/TAZO 4.5GM/DEX-IS 100 ML IV SCH ×2 (13:51→22:34)
[2019-07-22 15:17] VITALS: BP_SYST 156
[2019-07-22] MEDS ORDERED: HEPARIN SODIUM,PORCINE 5000 UNITS/ML VIAL ONE (17:16)
[2019-07-22 20:30] VITALS: BP_SYST 147
[2019-07-22] MEDS: TERAZOSIN HCL 5 MG CAPSULE (HYTRIN) GT SCH (22:36)
[2019-07-23] MEDS: LevALBUTEROL HCL 1.25 MG/0.5 ML *CONC.* VIAL.NEB (XOPENEX CONC.) INH SCH ×4 (00:10→20:05)
[2019-07-23 00:24] VITALS: BP_SYST 137
[2019-07-23] MEDS: 0.45% NACL 1,000 ML IV SCH ×2 (06:04→17:25)
[2019-07-23] MEDS: PIPERACILLIN/TAZO 4.5GM/DEX-IS 100 ML IV SCH ×3 (06:04→19:44)
[2019-07-23 07:03] LABS: BASOPHILS # (AUTO) 0.1 K/uL (0.0-0.2); BASOPHILS % (AUTO) 0.5 % (0.0-2.0); EOSINOPHILS # (AUTO) 0.5 K/uL (0.0-0.4); EOSINOPHILS % (AUTO) 4.6 % (0.0-4.0); HEMOGLOBIN 7.4 g/dL (14.0-18.0); LYMPHOCYTES # (AUTO) 1.3 K/uL (1.0-5.5); MEAN CORPUSCULAR HEMOGLOBIN 30 pg (27-31); MEAN CORPUSCULAR HGB CONC 34 % (32-36); MEAN CORPUSCULAR VOLUME 89 fL (79.0-98.0); NEUTROPHILS # (AUTO) 8.5 K/uL (1.8-7.7); NEUTROPHILS % (AUTO) 74.9 % (40.0-70.0); PLATELET COUNT (AUTO) 187 K/uL (130-430); RED BLOOD CELL COUNT(AUTO) 2.45 MIL/uL (4.2-6.2); RED CELL DISTRIBUTION WIDTH 19.6 % (9.0-15.0); WHITE BLOOD COUNT (AUTO) 11.4 K/uL (4.8-10.8)
[2019-07-23 07:06] LABS: HEMATOCRIT 21.8 % (36-54)
[2019-07-23 07:28] LABS: CALCIUM 7.9 mg/dL (8.4-11.0); CREATININE 4.67 mg/dL (0.55-1.30); POTASSIUM 4.7 mmol/L (3.5-5.1); TOTAL BILIRUBIN 0.2 mg/dL (0.0-1.0)
[2019-07-23 08:00] VITALS: BP_SYST 117
[2019-07-23] MEDS ORDERED: ACETAMINOPHEN 650 MG/20.3 ML UDC GT PRN (08:19)
[2019-07-23] MEDS ORDERED: MILK OF MAGNESIA 30 ML UDC GT PRN (08:22)
[2019-07-23] MEDS: TAMSULOSIN HCL 0.4 MG CAP PO SCH (09:00)
[2019-07-23 09:27] VITALS: BP_SYST 140
[2019-07-23] MEDS: VANCOMYCIN HCL ORAL SOLUTION 250 MG/5 ML, 80 ML GT SCH ×4 (09:31→19:47)
[2019-07-23] MEDS: DOCUSATE SODIUM 100 MG/10 ML UDC GT SCH ×2 (09:31→19:47)
[2019-07-23] MEDS: MODAFINIL 100 MG TABLET (PROVIGIL) GT SCH (09:32)
[2019-07-23] MEDS: ATORVASTATIN 20 MG TABLET GT SCH (09:32)
[2019-07-23] MEDS: CLOPIDOGREL BISULFATE 75 MG TABLET GT SCH (09:33)
[2019-07-23] MEDS: ASPIRIN 81 MG TABLET(ECOTRIN) GT SCH (09:33)
[2019-07-23] MEDS: SOD FERRIC GLUC COMPLEX/SUC 125 MG in NS 100 ML IV SCH (09:34)
[2019-07-23] MEDS: CARVEDILOL 6.25 MG TABLET (COREG) GT SCH ×2 (11:14→19:48)
[2019-07-23 11:22] VITALS: BP_SYST 148
[2019-07-23 15:09] VITALS: BP_SYST 147
[2019-07-23] MEDS: HYDROmorphone 1 MG INJ. 1 MG/ML AMPUL IVP PRN (17:19)
[2019-07-23] MEDS: TERAZOSIN HCL 5 MG CAPSULE (HYTRIN) GT SCH (19:46)
[2019-07-23 21:40] VITALS: BP_SYST 141
[2019-07-24 00:16] VITALS: BP_SYST 144
[2019-07-24] MEDS: LevALBUTEROL HCL 1.25 MG/0.5 ML *CONC.* VIAL.NEB (XOPENEX CONC.) INH SCH ×4 (02:00→19:40)
[2019-07-24] MEDS: 0.45% NACL 1,000 ML IV SCH ×3 (04:25→21:34)
[2019-07-24] MEDS: PIPERACILLIN/TAZO 4.5GM/DEX-IS 100 ML IV SCH ×3 (04:25→21:33)
[2019-07-24] MEDS: ATORVASTATIN 20 MG TABLET GT SCH (10:06)
[2019-07-24] MEDS: MODAFINIL 100 MG TABLET (PROVIGIL) GT SCH (10:06)
[2019-07-24] MEDS: ASPIRIN 81 MG TABLET(ECOTRIN) GT SCH (10:06)
[2019-07-24] MEDS: DOCUSATE SODIUM 100 MG/10 ML UDC GT SCH ×2 (10:07→21:32)
[2019-07-24] MEDS: CLOPIDOGREL BISULFATE 75 MG TABLET GT SCH (10:07)
[2019-07-24] MEDS: TAMSULOSIN HCL 0.4 MG CAP GT SCH (10:09)
[2019-07-24 11:19] VITALS: BP_SYST 156
[2019-07-24] MEDS: CARVEDILOL 6.25 MG TABLET (COREG) GT SCH ×2 (11:46→21:00)
[2019-07-24 15:41] VITALS: BP_SYST 150
[2019-07-24] MEDS: HYDROmorphone 1 MG INJ. 1 MG/ML AMPUL IVP PRN (15:48)
[2019-07-24 20:00] VITALS: BP_SYST 155
[2019-07-24] MEDS: TERAZOSIN HCL 5 MG CAPSULE (HYTRIN) GT SCH (21:33)
[2019-07-25 00:02] VITALS: BP_SYST 154
[2019-07-25] MEDS: LevALBUTEROL HCL 1.25 MG/0.5 ML *CONC.* VIAL.NEB (XOPENEX CONC.) INH SCH ×4 (01:37→19:20)
[2019-07-25] MEDS: PIPERACILLIN/TAZO 4.5GM/DEX-IS 100 ML IV SCH ×3 (06:12→21:26)
[2019-07-25] MEDS: 0.45% NACL 1,000 ML IV SCH ×2 (07:00→17:05)
[2019-07-25 07:38] LABS: BASOPHILS # (AUTO) 0.1 K/uL (0.0-0.2); BASOPHILS % (AUTO) 0.5 % (0.0-2.0); EOSINOPHILS # (AUTO) 0.6 K/uL (0.0-0.4); HEMATOCRIT 23.7 % (36-54); HEMOGLOBIN 7.8 g/dL (14.0-18.0); LYMPHOCYTES # (AUTO) 1.6 K/uL (1.0-5.5); LYMPHOCYTES % (AUTO) 10.2 % (20.5-51.5); MEAN CORPUSCULAR HEMOGLOBIN 29 pg (27-31); MEAN CORPUSCULAR HGB CONC 33 % (32-36); MEAN CORPUSCULAR VOLUME 88 fL (79.0-98.0); MONOCYTES # (AUTO) 1.2 K/uL (0.0-1.0); MONOCYTES % (AUTO) 7.4 % (1.7-9.3); NEUTROPHILS # (AUTO) 12.2 K/uL (1.8-7.7); PLATELET COUNT (AUTO) 204 K/uL (130-430); RED BLOOD CELL COUNT(AUTO) 2.68 MIL/uL (4.2-6.2); RED CELL DISTRIBUTION WIDTH 19.5 % (9.0-15.0); WHITE BLOOD COUNT (AUTO) 15.7 K/uL (4.8-10.8)
[2019-07-25 08:06] LABS: ALBUMIN 1.9 g/dL (3.4-4.8); CALCIUM 7.6 mg/dL (8.4-11.0); CREATININE 4.84 mg/dL (0.55-1.30); POTASSIUM 3.9 mmol/L (3.5-5.1); TOTAL BILIRUBIN 0.3 mg/dL (0.0-1.0)
[2019-07-25] MEDS: MODAFINIL 100 MG TABLET (PROVIGIL) GT SCH (08:09)
[2019-07-25] MEDS: DOCUSATE SODIUM 100 MG/10 ML UDC GT SCH ×2 (08:09→21:23)
[2019-07-25] MEDS: TAMSULOSIN HCL 0.4 MG CAP GT SCH (08:09)
[2019-07-25] MEDS: ATORVASTATIN 20 MG TABLET GT SCH (08:10)
[2019-07-25] MEDS: CARVEDILOL 6.25 MG TABLET (COREG) GT SCH ×2 (08:10→21:23)
[2019-07-25] MEDS: ASPIRIN 81 MG TABLET(ECOTRIN) GT SCH (08:10)
[2019-07-25] MEDS: CLOPIDOGREL BISULFATE 75 MG TABLET GT SCH (08:10)
[2019-07-25 11:20] VITALS: BP_SYST 152
[2019-07-25 12:03] LABS: NEUTROPHILS % (AUTO) 77.9 % (40.0-70.0)
[2019-07-25 15:39] VITALS: BP_SYST 153
[2019-07-25] MEDS: HYDROmorphone 1 MG INJ. 1 MG/ML AMPUL IVP PRN (16:18)
[2019-07-25] MEDS: NACL 0.9% 1,000 ML IV SCH (18:43)
[2019-07-25 20:00] VITALS: BP_SYST 156
[2019-07-25] MEDS: TERAZOSIN HCL 5 MG CAPSULE (HYTRIN) GT SCH (21:24)
[2019-07-25 23:55] VITALS: BP_SYST 156
[2019-07-25 23:58] VITALS: BP_SYST 154
[2019-07-26] VITALS: BP_SYST 148
[2019-07-26 00:46] VITALS: BP_SYST 152
[2019-07-26] MEDS: LevALBUTEROL HCL 1.25 MG/0.5 ML *CONC.* VIAL.NEB (XOPENEX CONC.) INH SCH ×4 (00:50→19:43)
[2019-07-26] MEDS: PIPERACILLIN/TAZO 4.5GM/DEX-IS 100 ML IV SCH ×2 (05:00→14:14)
[2019-07-26 07:26] LABS: BASOPHILS % (AUTO) 0.4 % (0.0-2.0); EOSINOPHILS # (AUTO) 0.5 K/uL (0.0-0.4); EOSINOPHILS % (AUTO) 4.3 % (0.0-4.0); HEMATOCRIT 23.3 % (36-54); HEMOGLOBIN 7.8 g/dL (14.0-18.0); LYMPHOCYTES # (AUTO) 1.3 K/uL (1.0-5.5); LYMPHOCYTES % (AUTO) 10.9 % (20.5-51.5); MEAN CORPUSCULAR HEMOGLOBIN 30 pg (27-31); MEAN CORPUSCULAR HGB CONC 33 % (32-36); MEAN CORPUSCULAR VOLUME 89 fL (79.0-98.0); MONOCYTES # (AUTO) 0.9 K/uL (0.0-1.0); MONOCYTES % (AUTO) 7.5 % (1.7-9.3); NEUTROPHILS # (AUTO) 9.4 K/uL (1.8-7.7); NEUTROPHILS % (AUTO) 76.9 % (40.0-70.0); PLATELET COUNT (AUTO) 186 K/uL (130-430); RED BLOOD CELL COUNT(AUTO) 2.62 MIL/uL (4.2-6.2); RED CELL DISTRIBUTION WIDTH 19.7 % (9.0-15.0); WHITE BLOOD COUNT (AUTO) 12.2 K/uL (4.8-10.8)
[2019-07-26 07:54] LABS: ALBUMIN 1.8 g/dL (3.4-4.8); CALCIUM 7.3 mg/dL (8.4-11.0); CREATININE 5.23 mg/dL (0.55-1.30); POTASSIUM 4.4 mmol/L (3.5-5.1); TOTAL BILIRUBIN 0.3 mg/dL (0.0-1.0)
[2019-07-26 08:00] VITALS: BP_SYST 144
[2019-07-26] MEDS: DOCUSATE SODIUM 100 MG/10 ML UDC GT SCH (08:40)
[2019-07-26] MEDS: CLOPIDOGREL BISULFATE 75 MG TABLET GT SCH (08:41)
[2019-07-26] MEDS: MODAFINIL 100 MG TABLET (PROVIGIL) GT SCH (08:41)
[2019-07-26] MEDS: ATORVASTATIN 20 MG TABLET GT SCH (08:41)
[2019-07-26] MEDS: ASPIRIN 81 MG TABLET(ECOTRIN) GT SCH (08:42)
[2019-07-26] MEDS: TAMSULOSIN HCL 0.4 MG CAP GT SCH (08:42)
[2019-07-26] MEDS ORDERED: HEPARIN SODIUM,PORCINE 5000 UNITS/ML VIAL IV ONE (11:15)
[2019-07-26] MEDS: NACL 0.9% 1,000 ML IV SCH (11:57)
[2019-07-26 12:15] VITALS: BP_SYST 164
[2019-07-26] MEDS: CARVEDILOL 6.25 MG TABLET (COREG) GT SCH (14:15)
[2019-07-26 16:30] VITALS: BP_SYST 158
[2019-07-26 18:59] VITALS: BP_SYST 135
[2019-07-27 08:06] LABS: HEPATITIS A AB, IgM Negative (Negative); HEPATITIS B CORE AB, IgM Negative (Negative); HEPATITIS B SURFACE AG Negative (Negative)
[2019-07-27 17:05] LABS: URINE SODIUM, RANDOM 24 mmol/L (40-220)
== END 2019-07-26 20:25 | DRG 207 ==
LOC: SED 13:12 → STU 15:36
PROVIDERS: ADMIT Family Medicine; ATTEND Family Medicine
PROC: 5A1955Z Respiratory Ventilation, Greater than 96 Consecutive Hours (ICD-10-PCS; principal; 2019-07-12)
PROC: 30233N1 Transfusion of Nonautologous Red Blood Cells into Peripheral Vein, Percutaneous Approach (ICD-10-PCS; 2019-07-12)
PROC: 06HY33Z Insertion of Infusion Device into Lower Vein, Percutaneous Approach (ICD-10-PCS; 2019-07-22)
PROC: 5A1D70Z Performance of Urinary Filtration, Intermittent, Less than 6 Hours Per Day (ICD-10-PCS; 2019-07-23)
PROC: 5A1D70Z Performance of Urinary Filtration, Intermittent, Less than 6 Hours Per Day (ICD-10-PCS; 2019-07-26)
DX: J18.9 Pneumonia, unspecified organism (principal); N17.0 Acute kidney failure with tubular necrosis; E44.0 Moderate protein-calorie malnutrition; J96.10 Chronic respiratory failure, unspecified whether with hypoxia or hypercapnia; I69.354 Hemiplegia and hemiparesis following cerebral infarction affecting left non-dominant side; N39.0 Urinary tract infection, site not specified; Z99.11 Dependence on respirator [ventilator] status; E87.1 Hypo-osmolality and hyponatremia; Z79.899 Other long term (current) drug therapy; D64.9 Anemia, unspecified; E86.0 Dehydration; I12.9 Hypertensive chronic kidney disease with stage 1 through stage 4 chronic kidney disease, or unspecified chronic kidney disease; N18.9 Chronic kidney disease, unspecified; E11.22 Type 2 diabetes mellitus with diabetic chronic kidney disease; B96.89 Other specified bacterial agents as the cause of diseases classified elsewhere; G47.33 Obstructive sleep apnea (adult) (pediatric); R13.10 Dysphagia, unspecified; Z93.1 Gastrostomy status; Z93.0 Tracheostomy status; Z79.82 Long term (current) use of aspirin; Z68.35 Body mass index [BMI] 35.0-35.9, adult
CPT/HCPCS: 36415; 71045; 76770; 80048; 80053; 80074; 81000-TC; 82272; 82550-TC; 82570-TC; 82607; 82728; 82746; 82962; 83540-TC; 83550-TC; 83690-TC; 83735-TC; 83935-TC; 84302-TC; 84484; 85025; 86886; 86900; 86901; 86920; 87040-TC; 87081; 87086; 87186-TC; 87230-TC; 90935; 90937; 93005; 94002; 94003; 94640; 94760; 96374; 99285; G0378; J0360; J0692; J0696; J1170; J1644; J1815; J1940; J2001; J2060; J2405; J2543; J2765; J2916; J3010; J3370; J7030; J7040; J7050; J7060; J7612; P9021